=== PATIENT | male | born 1985 | race Caucasian/White ===

== ENCOUNTER 2021-07-26 15:25 | Emergency (ER) | payer BC, MEDICAID ==
[2021-07-26 16:30] LABS: ACETAMINOPHEN 0 ug/mL (10-30)
[2021-07-26] MEDS ORDERED: cloNIDine 0.1 MG Tab PO ONE (16:32)
[2021-07-26] MEDS ORDERED: Ondansetron 4 MG Tab.DIS PO ONE (17:38)
[2021-07-26] MEDS ORDERED: LORazepam 0.5 MG Tab PO STA (17:57)
[2021-07-26] MEDS ORDERED: LORazepam 0.5 MG Tab PO SCH (21:00)
== END 2021-07-26 18:26 | disposition other institution (70) ==
LOC: JD.ED 15:25
DX: F11.23 Opioid dependence with withdrawal (principal); F15.10 Other stimulant abuse, uncomplicated; F17.210 Nicotine dependence, cigarettes, uncomplicated; Z20.822 Contact with and (suspected) exposure to COVID-19
CPT/HCPCS: 36415; 80053; 80143; 80179; 80306; 80307; 84443; 85007; 85027; 87635; 93005; 99284; A9270; 93010; 99283; U0002